=== PATIENT | female | born 1970 | race Two or more races ===

== ENCOUNTER 2020-10-16 07:48 | Outpatient (CLI) | payer OTHER | END 2020-10-16 07:54 | disposition home or self-care (01) | LOC: SONOGRAMA 07:48 | PROVIDERS: ATTEND Pathology Anatomic Pathology & Clinical Pathology | DX: E03.8 Other specified hypothyroidism (principal) ==

== ENCOUNTER 2021-07-20 10:23 | Outpatient (CLI) | payer OTHER | END 2021-07-20 10:29 | disposition home or self-care (01) | LOC: SONOGRAMA 10:23 | PROVIDERS: ATTEND Pathology Anatomic Pathology & Clinical Pathology | DX: E04.1 Nontoxic single thyroid nodule (principal) ==